=== PATIENT | female | born 1960 | race Caucasian/White ===

== ENCOUNTER → 2023-09-30 06:37 | Day surgery (SDC) | payer OTHER, SELFPAY | LOC: GI 06:37 | PROVIDERS: ATTENDING PHYSICIAN Internal Medicine Gastroenterology; FAMILY PHYSICIAN Physician Assistant Medical | DX: Z12.11 Encounter for screening for malignant neoplasm of colon (principal); Z86.010 Personal history of colon polyps; K57.30 Diverticulosis of large intestine without perforation or abscess without bleeding; D12.0 Benign neoplasm of cecum; K64.8 Other hemorrhoids | CPT/HCPCS: 45385; 88305 ==

== ENCOUNTER 2025-03-17 20:56 | Emergency (ER) | payer OTHER, SELFPAY ==
[2025-03-17 21:05] VITALS: BP 120/95
[2025-03-17 21:19] LABS: Hematocrit 37.4 % (37.0-47.0); Hemoglobin 12.4 g/dL (12.0-16.0); Mean Corp Hgb Conc. 33.2 g/dL (33.0-37.0); Mean Corpuscular Volume 87.6 fL (81.0-99.0); Nucleated Red Blood Cells % 0 %; Platelet Count 246 10^3/uL (130-400); Red Cell Dist. Width 13.0 % (11.5-14.5)
[2025-03-17 21:43] LABS: ALT (SGPT) 18 U/L (0-35); AST (SGOT) 27 U/L (14-36); Albumin 4.2 g/dl (3.5-5.0); Alkaline Phosphatase 79 U/L (38-126); Blood Urea Nitrogen 19 mg/dl (7-17); Calcium 9.1 mg/dl (8.4-10.2); Carbon Dioxide 27 mmol/L (22-30); Chloride 104 mmol/L (98-107); Glucose 111 mg/dl (70-99); Lipase 140 U/L (23-300); Potassium 3.8 mmol/L (3.5-5.1); Sodium 136 mmol/L (135-145); Total Protein 7.1 g/dl (6.3-8.2); eGFR > 60.00
[2025-03-17 22:13] VITALS: BMI 22.8
--- NOTE | 2025-03-17 22:14 | EDRN ---
Pt thinks she has diverticulitis which she has had previously. Pt with LLQ tenderness, chills. Pain constant all day and got worse around 1700. Pt says pain feels 'like a fullness.' No n/v/d/c, urinary symptoms, cp/sob, cough. Pt had oral temp
100.8 at home around 2014.
[2025-03-17 22:18] VITALS: BP 118/69
[2025-03-17 22:28] LABS: Urine Character Clear (Clear)
[2025-03-17] MEDS: NSS 1000 IV (22:50)
[2025-03-17] MEDS: TORADOL 15 MG IV (22:51)
[2025-03-18] MEDS: AUGMENTIN 875 MG/125 MG 1 TABLET PO (00:28)
--- NOTE | 2025-03-18 00:30 | EDRN ---
Pt given crackers to eat.
[2025-03-18 00:36] VITALS: BP 109/67
--- NOTE | 2025-03-18 00:38 | ED.GENMED ---
History of Present Illness
General
Chief Complaint: Abdominal Pain
Source: patient
Exam Limitations: none
Time Seen by Provider: 03/17/25 22:05
Nursing documentation reviewed up to this point in time: agreed with
History of Present Illness
History of Present Illness:
Patient is a 64-year-old female with history of diverticulitis, kidney stones who presents to the emergency department for evaluation of lower abdominal pain. Patient reports an intermittent discomfort in her lower abdomen over the past few weeks
although states that symptoms seemed significantly worse this morning upon waking. She has a sharp pain in her left lower abdomen without radiation to her back or groin. Symptoms have been constant today. No associated fever, nasuea/vomiting,
anorexia, dysuria/hematuria, or diarrhea/constipation. No chest pain or shortness of breath.
She states that she has been eating yogurt daily over the past few months and is wondering if this may have caused a flare of her diverticulitis, which she has a history of.
Past History
Past History
ED Past Medical History: None
ED Past Surgical History: None
Social History
Tobacco: Non-smoker
Review of Systems
Review of Systems
Allergies reviewed?: Yes
All Other Systems: ROS reviewed and negative except as documented in HPI and ROS
Phy Exam
Physical Exam
Physical Exam:
Vitals: Patient's vital signs are stable. Afebrile
General: Patient is well appearing, no acute distress. Nontoxic appearing.
Skin: Warm and dry, no rashes or lesions
Head: Normocephalic, atraumatic
Eyes: Sclera nonicteric.
Throat: Protecting airway
Neck: Normal ROM, no cervical spine tenderness, no meningismus
Cardiac: Regular rate and rhythm, no murmurs.
Pulm: Normal respiratory effort, no wheezes, rales, rhonchi heard on exam
Abdomen: Abdomen soft. Mild tenderness in left lower quadrant. No rebound tenderness or guarding. No CVA tenderness
Extremities: No evidence of cyanosis or edema
Neuro: AAOx3. Grossly intact.
Psychiatric: Normal affect.
Course
Orders/Labs/Results
Orders:
Orders
03/17/25 21:14
Complete Blood Count/With Diff Urgent
Comprehensive Metabolic Panel Urgent
Lipase Urgent
03/17/25 22:20
Urinalysis Reflex To Culture Urgent
Date Specimen was Collected: 03/17/25
Time Specimen was Collected: 22:19
03/17/25 22:33
0.9% Sodium Chloride 1000 ml [Nss] 1,000 ml IV BOLUS
Ketorolac [Toradol] 15 mg IV NOW STA
03/17/25 22:34
CT Abd/pelvis W Iv Cont Urgent
Comment: hx diverticulitis
Reason For Exam: LLQ pain
03/18/25 00:13
Amoxicillin 875 mg/Clav 125 mg [Augmentin 875 mg/125 mg] 1 tablet PO NOW STA
Abnormal Lab Results
03/17/25
21:14
Absolute Neuts (auto) 7.9 H 10^3/uL
(1.4-6.5)
Absolute Monos (auto) 0.9 H 10^3/uL
(0.1-0.6)
Lymphocytes % 16.1 L %
(20.5-51.1)
BUN 19 H mg/dl
(7-17)
Glucose 111 H mg/dl
(70-99)
03/17/25 21:14
03/17/25 21:14
Vital Signs
Initial and Last Documented VS:
Initial Vital Signs
Temp Pulse Resp BP Pulse Ox
98.7 F 105 16 120/95 98
03/17/25 21:05 03/17/25 21:05 03/17/25 21:05 03/17/25 21:05 03/17/25 21:05
Last Documented Vital Signs
Temp Pulse Resp BP Pulse Ox
98.6 F 88 14 109/67 97
03/17/25 22:18 03/18/25 00:36 03/18/25 00:36 03/18/25 00:36 03/18/25 00:39
MDM/Problems Addressed
Differential Diagnosis Includes:
Not limited to: diverticulitis, colitis, pyelonephritis, cystitis, renal colic, constipation, etc
MDM/Problems Addressed:
64 year-old female with one day of lower abdominal pain. Symptoms mild and intermittent over the past few weeks however constant starting today. No vomiting, urinary symptoms, or changes in bowel habits. History of diverticulitis.
Vitals stable, patient afebrile. Physical exam as above.
Basic labs unremarkable. No leukocytosis. CT scan shows findings of uncomplicated acute diverticulitis of sigmoid colon.
Patient was given IV Toradol and IV fluids in emergency department with some improvement in symptoms. Given she is afebrile without leukocytosis or evidence of complicating factor on imaging � feel stable for discharge home on oral antibiotics.
Advised clear liquid diet ,tylenol/motrin as needed for pain and return precautions. Patient given dose of Augmentin in ED with remainder of prescription sent to pharmacy. Return precautions discussed. Patient comfortable with plant.
Chronic conditions affecting care:
History of diverticulitis
Acute Exacerbation and/or Progression of Chronic Illness:
Acute diverticulitis
*Radiology
Radiology exam reviewed: radiology read reviewed
*Pulse Oximetry
SaO2: 97
Oxygen Mode of Delivery: Room air
Patient hypoxic: no
*EKG
Interpreted by ED Provider?: NA
*Second Watch Sergeant Interpretation
Rate: Second Watch Sergeant- N/A
*Critical Care Note
Total Time (30-74mins, 75-104mins- exclusive of procedures): Not Applicable
ED Attending Note
-
Portions of this chart may have been created with voice recognition software.� Occasional wrong word or��sound alike� substitutions may have occurred due to the inherent limitations of voice recognition software.
Discharge Plan
Departure
Patient Disposition: Home (Routine Discharge)
Date of Disposition: 03/18/25
Time of Disposition: 00:13
Patient with high blood pressure during this ER visit?: Yes
Discharge Problem:
Acute diverticulitis
Instructions: Clear Liquid Diet, Diverticulitis (DC)
Prescriptions:
New
amoxicillin-pot clavulanate 875-125 mg tablet
1 tab PO BID 10 Days Qty: 20 0RF
Referrals:
Jackelyn Acosta PA [Family Provider, Family Practice] - Follow up in 5-7 days
Activity Restrictions/Additional Instructions:
RETURN TO THE EMERGENCY DEPARTMENT ANY FEVER, CHILLS, PERSISTENT/WORSENING ABDOMINAL PAIN, INTRACTABLE NAUSEA/VOMITING, OR ANY OTHER CONCERNS
- Your CT scan showed acute diverticulitis of your sigmoid colon.
- A prescription for antibiotics have been sent to your pharmacy. Please take twice a day for the next 10 days. I would recommend a clear liquid diet over the next 2 days and slowly advance to low fiber. Stay well-hydrated. You can take Tylenol
and/or Motrin as needed for pain.
- Follow-up with primary care in 1 week for further evaluation/management to ensure that your symptoms are improving
Monitor your symptoms closely and return to the emergency department with any acute worsening/new symptoms or any other concerns
Interventions
Interventions:
*Risk Screen - Suicide Last Done: 03/17/25 21:05
*General Assessment Last Done: 03/17/25 22:13
*Neglect/Abuse Screening Last Done: 03/17/25 21:06
*ED- Fall Risk Assessment Last Done: 03/17/25 22:13
*ED COVID-19 Vaccine History Last Done: 03/17/25 22:13
*ED Influenza Vaccine History Last Done: 03/17/25 22:13
*Nursing Disposition Last Done: 03/18/25 00:45
FG-Qbvthq-Zmajfykpwd Assessment Last Done: 03/17/25 22:24
Discharge Date and Time
Discharge Date/Time: 03/18/25 00:45
Print Language: INDONESIAN
== END 2025-03-18 00:45 | disposition home or self-care (01) ==
LOC: EMR 20:56
PROVIDERS: Physician Assistant; Student in an Organized Health Care Education/Training Program; EMERGENCY PHYSICIAN Student in an Organized Health Care Education/Training Program; FAMILY PHYSICIAN Physician Assistant Medical
DX: K57.32 Diverticulitis of large intestine without perforation or abscess without bleeding (principal); R03.0 Elevated blood-pressure reading, without diagnosis of hypertension
CPT/HCPCS: 99284; 96374; 96361; 74177; 80053; 81003; 83690; 85025; Q9967